=== PATIENT | female | born 1975 | race Caucasian/White ===

== ENCOUNTER 2019-11-23 05:43 | Emergency (ER) | payer MEDICAID, OTHER ==
[~2019-11-23] VITALS: Ht 160 cm; Wt 49.0 kg
[2019-11-23 05:50] VITALS: BP 161/93
--- NOTE | 2019-11-23 05:50 | NUR ---
ED Nurse Note: Pt brought into ED by DAHLIA YANG 813 from home for abdominal pain onset approx. 30 min [employer] SCI[employer]. Pt reports nausea and one episode of vomiting. Pt states she was woken up by the pain and has never had this type of pain before. Pt is aaox4, breathing is normal and unlabored, no cough or fever. Safety measures in place, will continue to monitor.
--- NOTE | 2019-11-23 06:04 | Emergency Room Report ---
History of Present Illness General Chief Complaint: Abdominal Pain Source: Patient Present Illness HPI 44-year-old female history of 2 sections, tubal ligation presents with periumbilical pain that started 30 minutes prior to arrival caused her to have acute nausea and vomiting, 1 episode no diarrhea pain is sharp constant no aggravating alleviating factors severity is severe patient presents for evaluation treatment Allergies: Coded Allergies: No Known Allergies (Unverified , 11/23/19) COVID-19 Screening Contact w/high risk pt: No Recent Travel to affected area: No Experienced COVID-19 symptoms?: No COVID-19 Testing performed FORKLIFT DRIVER: No Patient History Past Medical History: see triage record Last Menstrual Period: UNK : 2 Para: 2 Reviewed Nursing Documentation: PMH: Agreed; PSxH: Agreed Nursing Documentation-PMH Hx Diabetes: Yes - DM2 Review of Systems All Other Systems: negative except mentioned in HPI Physical Exam Vital Signs Date Time Temp Pulse Resp B/P (MAP) Pulse Ox O2 Delivery O2 Flow Rate FiO2 11/23/19 05:43 98.2 98 16 161/93 (115) 99 Room Air Sp02 EP Interpretation: reviewed, normal General Appearance: well appearing, no apparent distress, alert Head: normocephalic, atraumatic Eyes: bilateral eye PERRL, bilateral eye EOMI ENT: uvula midline, moist mucus membranes Neck: supple, thyroid normal, supple/symm/no masses Respiratory: lungs clear, no respiratory distress, no retraction, no accessory muscle use Cardiovascular #1: normal peripheral pulses, regular rate, rhythm, no edema, no gallop, no murmur Gastrointestinal: soft, no guarding, no rebound, tenderness - Tenderness periumbilically Musculoskeletal: normal inspection Neurologic: alert, oriented x3 Psychiatric: mood/affect normal Skin: no rash, warm/dry Medical Decision Making Diagnostic Impression: Primary Impression: Abdominal pain Qualified Codes: R10.33 - Periumbilical pain Additional Impression: Pancreatitis Qualified Codes: K85.90 - Acute pancreatitis without necrosis or infection, unspecified ER Course 44-year-old female presents with epigastric/periumbilical pain differential diagnosis includes pancreatitis cholecystitis, diverticulitis, Patient found to have a lipase greater than 2000, patient also with pancreatitis on CT, patient given fluids, hydromorphone and morphine for pain, Zofran for nausea, and fluids patient's tachycardia has resolved, patient was accepted by [facility] by Dr. Velez Laboratory Tests Test 11/23/19 05:50 11/23/19 07:05 White Blood Count 5.4 K/UL (4.8-10.8) Red Blood Count 4.68 M/UL (4.20-5.40) Hemoglobin 16.4 G/DL (12.0-16.0) H Hematocrit 42.9 % (37.0-47.0) Mean Corpuscular Volume 92 FL (80-99) Mean Corpuscular Hemoglobin 35.1 PG (27.0-31.0) H Mean Corpuscular Hemoglobin Concent 38.3 G/DL (32.0-36.0) H Red Cell Distribution Width 13.7 % (11.6-14.8) Platelet Count 245 K/UL (150-450) Mean Platelet Volume 7.6 FL (6.5-10.1) Neutrophils (%) (Auto) 61.8 % (45.0-75.0) Lymphocytes (%) (Auto) 32.2 % (20.0-45.0) Monocytes (%) (Auto) 3.5 % (1.0-10.0) Eosinophils (%) (Auto) 1.2 % (0.0-3.0) Basophils (%) (Auto) 1.3 % (0.0-2.0) Sodium Level 129 MMOL/L (136-145) L Potassium Level 3.8 MMOL/L (3.5-5.1) Chloride Level 95 MMOL/L (98-107) L Carbon Dioxide Level 11 MMOL/L (21-32) L Anion Gap 23 mmol/L (5-15) H Blood Urea Nitrogen 8 mg/dL (7-18) Creatinine 0.5 MG/DL (0.55-1.30) L Estimated Glomerular Filtration Rate > 60 mL/min (>60) Glucose Level 367 MG/DL (74-106) H Calcium Level 7.2 MG/DL (8.5-10.1) L Total Bilirubin 0.6 MG/DL (0.2-1.0) Aspartate Amino Transferase (AST) U/L (15-37) Alanine Aminotransferase (ALT) U/L (12-78) Alkaline Phosphatase 80 U/L (46-116) Troponin I 0.000 ng/mL (0.000-0.056) Total Protein 7.7 G/DL (6.4-8.2) Albumin 2.7 G/DL (3.4-5.0) L Globulin 5.0 g/dL Lipase > 2000 U/L (73-393) H Human Chorionic Gonadotropin, Quant 1 mIU/mL (1-6) Urine Color Pale yellow Urine Appearance Clear Urine pH 5 (4.5-8.0) Urine Specific [place] 1.015 (1.005-1.035) Urine Protein 3+ (NEGATIVE) H Urine Glucose (UA) 4+ (NEGATIVE) H Urine Ketones 3+ (NEGATIVE) H Urine Blood Negative (NEGATIVE) Urine Nitrite Negative (NEGATIVE) Urine Bilirubin Negative (NEGATIVE) Urine Urobilinogen Normal MG/DL (0.0-1.0) Urine Leukocyte Esterase 1+ (NEGATIVE) H Urine RBC 0-2 /HPF (0 - 2) Urine WBC 10-15 /HPF (0 - 2) H Urine Squamous Epithelial Cells Occasional /LPF Urine Bacteria Few /HPF (NONE) EKG Diagnostic Results EKG Time: 06:06 EP Interpretation: NSR, rate 83 QTC 444, no acute ST elevations, normal axis Rhythm Strip Diag. Results Rhythm Strip Time: 06:09 EP Interpretation: yes Rate: 84 Rhythm: NSR, no PVC's, no ectopy Chest X-Ray Diagnostic Results Chest X-Ray Diagnostic Results : Chest X-Ray Ordered: Yes # of Views/Limited/Complete: 1 View Indication: Other - Abdominal pain EP Interpretation: Yes Interpretation: no consolidation, no effusion, no pneumothorax, no acute cardiopulmonary disease Impression: No acute disease Electronically Signed by: Richard Ornelas MD CT/MRI/US Diagnostic Results CT/MRI/US Diagnostic Results : Impression Final Report ADDENDUM - Added by Chai Boyd MD on 11/23/2019 8:16 AM (-04:00) Note there is a typographical error in the body and impression of the report. The report should state: Findings of acute PANCREATITIS, consisting of diffuse peripancreatic induration/ fluid adjacent to the body segment and tail. No evidence of pancreatic necrosis at this time (area of decreased enhancement). No pseudocyst formation at this time. Mildly prominent main pancreatic duct. No choledocholithiasis as assessed on coronal images. EXAM: CT Abdomen and Pelvis With Intravenous Contrast CLINICAL HISTORY: ABD PAIN TECHNIQUE: Axial computed tomography images of the abdomen and pelvis with intravenous contrast. CTDI is 3.3 mGy and DLP is 167.9 mGy-cm. One or more of the following dose reduction techniques were used: automated exposure control, adjustment of the mA and/or kV according to patient size, use of iterative reconstruction technique. COMPARISON: No relevant prior studies available. FINDINGS: Lung bases: Unremarkable. No mass. No consolidation. ABDOMEN: Liver: Unremarkable. No mass. Gallbladder and bile ducts: Unremarkable. No calcified stones. No ductal dilation. Pancreas: Findings of acute appendicitis, consisting of diffuse peripancreatic induration/fluid adjacent to the body segment and tail. No evidence of pancreatic necrosis at this time (area of decreased enhancement). No pseudocyst formation at this time. Mildly prominent main pancreatic duct. No choledocholithiasis as assessed on coronal images. Spleen: Unremarkable. No splenomegaly. Adrenals: Unremarkable. No mass. Kidneys and ureters: The kidneys symmetrically enhance. There is no hydronephrosis. Numerous areas of bilateral cortical scarring involving the right upper pole, right midpole, right lower pole, left upper pole, and left midpole. Stomach and bowel: Numerous fecalized loops of small bowel which is nonspecific and may represent ileus. Correlate for constipation. No obstruction. No mucosal thickening. PELVIS: Appendix: No findings to suggest acute appendicitis. Bladder: Unremarkable. No mass. Reproductive: Fibroid uterus, which contains a 1.5 x 1.3 cm posterior fundal fibroid. ABDOMEN and PELVIS: Intraperitoneal space: Free fluid in the pelvis. No free air. Bones/joints: Mild degenerative changes of the spine. Soft tissues: There are bilateral breast prostheses. Vasculature: Unremarkable. No abdominal aortic aneurysm. Lymph nodes: Unremarkable. No enlarged lymph nodes. IMPRESSION: Findings of acute appendicitis, consisting of diffuse peripancreatic induration/ fluid adjacent to the body segment and tail. No evidence of pancreatic necrosis at this time (area of decreased enhancement). No pseudocyst formation at this time. Mildly prominent main pancreatic duct. No choledocholithiasis as assessed on coronal images. Numerous fecalized loops of small bowel which is nonspecific and may represent ileus. Correlate for constipation. Numerous bilateral areas of renal cortical scarring. Correlate for history of renal pathology, such as pyonephritis. See above for all findings. Radiologist: Chai Boyd MD Electronically Signed: 11/23/19 08:16 Phone: Study ready at 07:47 and initial results transmitted at 08:05 Communications: Clear Time Type Notes Verify Receipt Addendum Last Vital Signs Date Time Temp Pulse Resp B/P (MAP) Pulse Ox O2 Delivery O2 Flow Rate FiO2 11/23/19 05:50 98 16 Room Air 11/23/19 05:50 98.2 161/93 99 Disposition: SHORT-TERM HOSP Condition: Stable Richard Ornelas MD Nov 23, 2019 06:04
[2019-11-23 06:14] LABS: BASOPHILS % (AUTO) 1.3 % (0.0-2.0); EOSINOPHILS % (AUTO) 1.2 % (0.0-3.0); HEMATOCRIT 42.9 % (37.0-47.0); HEMOGLOBIN 16.4 G/DL (12.0-16.0); LYMPHOCYTES % (AUTO) 32.2 % (20.0-45.0); MEAN CORPUSCULAR VOLUME 92 FL (80-99); MONOCYTES % (AUTO) 3.5 % (1.0-10.0); NEUTROPHILS % (AUTO) 61.8 % (45.0-75.0); PLATELET COUNT 245 K/UL (150-450); RED BLOOD COUNT 4.68 M/UL (4.20-5.40); RED CELL DISTRIBUTION WIDTH 13.7 % (11.6-14.8); WHITE BLOOD COUNT 5.4 K/UL (4.8-10.8)
[2019-11-23] MEDS ORDERED: Omnipaque-300 100ml vial INJ PRN (06:15)
[2019-11-23] MEDS ORDERED: Morphine Sulfate 4mg/ml Inj (IV USE ONLY) IVP ONE (06:15)
--- NOTE | 2019-11-23 07:00 | NUR ---
ED Nurse Note: Urine collected and sent to lab.
--- NOTE | 2019-11-23 07:05 | NUR ---
HAND-OFF: Report given to DANIEL Helms. Pt is resting in bed, NAD.
--- NOTE | 2019-11-23 07:10 | NUR ---
ED Nurse Note: Received handoff report from Arpita SANCHEZ, patient resting in bed, no s/s of acute distres. Urine sent to lab.
[2019-11-23 07:14] LABS: APPEARANCE,URINE CLEAR; BILIRUBIN, URINE NEGATIVE (NEGATIVE); COLOR,URINE PALE YELLOW; GLUCOSE, URINE (UA) 4+ (NEGATIVE); KETONES,URINE 3+ (NEGATIVE); LEUKOCYTE ESTERASE ,URINE 1+ (NEGATIVE); NITRITE,URINE NEGATIVE (NEGATIVE); PH,URINE 5 (4.5-8.0); PROTEIN,URINE 3+ (NEGATIVE); UROBILINOGEN,URINE NORMAL MG/DL (0.0-1.0)
[2019-11-23 07:15] VITALS: BP 128/86
--- NOTE | 2019-11-23 07:15 | NUR ---
ED Nurse Note: Patient taken to CT
--- NOTE | 2019-11-23 07:25 | NUR ---
ED Nurse Note: Patient returned from CT
[2019-11-23 07:29] LABS: ALBUMIN 2.7 G/DL (3.4-5.0); ALKALINE PHOSPHATASE 80 U/L (46-116); ANION GAP 23 mmol/L (5-15); BILIRUBIN,TOTAL 0.6 MG/DL (0.2-1.0); BLOOD UREA NITROGEN 8 mg/dL (7-18); CALCIUM 7.2 MG/DL (8.5-10.1); CARBON DIOXIDE 11 MMOL/L (21-32); CHLORIDE 95 MMOL/L (98-107); CREATININE 0.5 MG/DL (0.55-1.30); POTASSIUM 3.8 MMOL/L (3.5-5.1); SODIUM 129 MMOL/L (136-145)
--- NOTE | 2019-11-23 08:06 | Diagnostic Imaging Report ---
ADDENDUM - Added by Chai Boyd MD on 11/23/2019 8:16 AM (-04:00) Note there is a typographical error in the body and impression of the report. The report should state: Findings of acute PANCREATITIS, consisting of diffuse peripancreatic induration/fluid adjacent to the body segment and tail. No evidence of pancreatic necrosis at this time (area of decreased enhancement). No pseudocyst formation at this time. Mildly prominent main pancreatic duct. No choledocholithiasis as assessed on coronal images. EXAM: CT Abdomen and Pelvis With Intravenous Contrast CLINICAL HISTORY: ABD PAIN TECHNIQUE: Axial computed tomography images of the abdomen and pelvis with intravenous contrast. CTDI is 3.3 mGy and DLP is 167.9 mGy-cm. One or more of the following dose reduction techniques were used: automated exposure control, adjustment of the mA and/or kV according to patient size, use of iterative reconstruction technique. COMPARISON: No relevant prior studies available. FINDINGS: Lung bases: Unremarkable. No mass. No consolidation. ABDOMEN: Liver: Unremarkable. No mass. Gallbladder and bile ducts: Unremarkable. No calcified stones. No ductal dilation. Pancreas: Findings of acute appendicitis, consisting of diffuse peripancreatic induration/fluid adjacent to the body segment and tail. No evidence of pancreatic necrosis at this time (area of decreased enhancement). No pseudocyst formation at this time. Mildly prominent main pancreatic duct. No choledocholithiasis as assessed on coronal images. Spleen: Unremarkable. No splenomegaly. Adrenals: Unremarkable. No mass. Kidneys and ureters: The kidneys symmetrically enhance. There is no hydronephrosis. Numerous areas of bilateral cortical scarring involving the right upper pole, right midpole, right lower pole, left upper pole, and left midpole. Stomach and bowel: Numerous fecalized loops of small bowel which is nonspecific and may represent ileus. Correlate for constipation. No obstruction. No mucosal thickening. PELVIS: Appendix: No findings to suggest acute appendicitis. Bladder: Unremarkable. No mass. Reproductive: Fibroid uterus, which contains a 1.5 x 1.3 cm posterior fundal fibroid. ABDOMEN and PELVIS: Intraperitoneal space: Free fluid in the pelvis. No free air. Bones/joints: Mild degenerative changes of the spine. Soft tissues: There are bilateral breast prostheses. Vasculature: Unremarkable. No abdominal aortic aneurysm. Lymph nodes: Unremarkable. No enlarged lymph nodes. IMPRESSION: Findings of acute appendicitis, consisting of diffuse peripancreatic induration/fluid adjacent to the body segment and tail. No evidence of pancreatic necrosis at this time (area of decreased enhancement). No pseudocyst formation at this time. Mildly prominent main pancreatic duct. No choledocholithiasis as assessed on coronal images. Numerous fecalized loops of small bowel which is nonspecific and may represent ileus. Correlate for constipation. Numerous bilateral areas of renal cortical scarring. Correlate for history of renal pathology, such as pyonephritis. See above for all findings. <MYCVCSECTION> Communications: 11/23/19 08:30 Verify Receipt Verified receipt with XUAN Suarez, given to Dr. Scott on 11/22 08:29 (-07:00)
[2019-11-23] MEDS ORDERED: HYDROmorphone 1mg/ml Carpuject IVP ONE (08:15)
[2019-11-23 09:46] VITALS: BP 124/82
--- NOTE | 2019-11-23 09:48 | NUR ---
ED Nurse Note: Patient resting in bed, no s/s of acute distress. Patient tolerating meds well, pain now a 3/10
--- NOTE | 2019-11-23 10:04 | NUR ---
ED Nurse Note: Report given to Sotero SANCHEZ, Liability Claims Representative at [facility]. Patient accepted for transfer.
--- NOTE | 2019-11-23 10:22 | Diagnostic Imaging Report ---
Procedure: XRAY Chest 1v Reason for study: Chest pain. Comparison films: None. FINDINGS: A single one view chest is obtained. Vascularity is normal. The lung magana are clear bilaterally. Cardiac and mediastinal silhouette are within normal limits. CP angles are sharp. The bony thorax appear unremarkable. IMPRESSION: NO ACUTE CARDIOPULMONARY DISEASE.
[2019-11-23 11:30] VITALS: BP 124/82
[2019-11-23 12:22] VITALS: BP 118/79
--- NOTE | 2019-11-23 13:18 | NUR ---
ED Nurse Note: Report received from Scooter Maldonado RN. Pt is in bed resting, awaiting for [facility] ambulance to pick pt up and go to [facility].
[2019-11-23 13:55] VITALS: BP 122/84
--- NOTE | 2019-11-23 13:55 | NUR ---
ER DISCHARGE NOTE: [facility] ambulance unit #[id number] arrived to pick pt up. report given to ambulance personnels. Pt was then [facility]. pt took all her belongings with her.
== END 2019-11-23 13:55 | disposition short-term general hospital (02) ==
LOC: EDBD 05:43 → EMR 06:38
DX: K85.90 Acute pancreatitis without necrosis or infection, unspecified (principal); R10.33 Periumbilical pain; E11.9 Type 2 diabetes mellitus without complications; R00.0 Tachycardia, unspecified
CPT/HCPCS: 36415; 71045; 74177; 80053; 81003; 83690; 84484; 84702; 85025; 87086; 93005; 96361; 96374; 96375; 96376; J1170; J2270; J2405; J7030; Q9967; S0028; Z7502; 99284